=== PATIENT | male | born 1995 | race African-American/Black ===

== ENCOUNTER 2016-04-04 00:38 | Emergency (ER) | payer OTHER ==
[2016-04-04 00:53] VITALS: BP 132/75; PULSE 90; BMI 22.3
--- NOTE | 2016-04-04 01:45 | PDOC ---
History of Present Illness - General History Source: Patient Exam Limitations: No Limitations - History of Present Illness Initial Comments: CHIEF COMPLAINT: 21 y/o male c/o right ankle pain and swelling s/p slip and fall. HISTORY OF PRESENT ILLNESS: The patient fell down a few stairs and landed in an eversion fashion on his right ankle. He denies head trauma, LOC, and all other complaints. Vital signs on arrival are within normal limits. REVIEW OF SYSTEMS: GENERAL/CONSTITUTIONAL: No fever/chills. No weakness. No weight change. HEAD, EYES, EARS, NOSE AND THROAT: No change in vision. No ear pain or discharge. No sore throat. MUSCULOSKELETAL: +right ankle pain and swelling. No neck or back pain. SKIN: No rash or easy bruising. NEUROLOGIC: No headache, vertigo, loss of consciousness, or loss of sensation. PHYSICAL EXAM: VITAL_SIGNS: within normal limits GENERAL_APPEARANCE: alert, cooperative, mild obvious discomfort. MENTAL_STATUS: speech clear, oriented X 3, responds appropriately to questions. NEURO: motor intact and sensory intact in injured extremity. EXTREMITIES: good pulse in injured extremity; moderate edema to lateral malleolus of right ankle. TTP of lateral malleolus and anterior right ankle joint. Decreased dorsiflexion of affected foot secondary to pain. No erythema , warmth, streaking. No obvious deformities. SKIN: warm, dry, good color. <Isela Heath - Last Filed: 04/04/16 01:41> <Marianela Barber - Last Filed: 04/04/16 03:12> - General Chief Complaint: Injury Stated Complaint: RT ANKLE/FOOT INJURY Time Seen by Provider: 04/04/16 01:38 Past History - Past Medical History Other medical history: denies - Psycho/Social/Smoking Cessation Hx Suicidal Ideation: No Smoking History: Never smoked <Isela Heath - Last Filed: 04/04/16 01:41> <Marianela Barber - Last Filed: 04/04/16 03:12> - Past Medical History Allergies/Adverse Reactions: Allergies Allergy/AdvReac Type Severity Reaction Status Date / Time No Known Allergies Allergy Verified 04/04/16 00:41 Home Medications: Ambulatory Orders Albuterol Sulfate Inhaler - [Ventolin Hfa Inhaler -] 1 - 2 inh PO QID 04/04/16 Naproxen 250 mg PO BID #14 tablet 04/04/16 *Physical Exam - Vital Signs Last Vital Signs Temp Pulse Resp BP Pulse Ox 90 18 132/75 98 04/04/16 00:41 04/04/16 00:41 04/04/16 00:41 04/04/16 00:41 <Isela Heath - Last Filed: 04/04/16 01:41> - Vital Signs Last Vital Signs Temp Pulse Resp BP Pulse Ox 90 18 132/75 98 04/04/16 00:41 04/04/16 00:41 04/04/16 00:41 04/04/16 00:41 <Marianela Barber - Last Filed: 04/04/16 03:12> ED Treatment Course - RADIOLOGY Radiology Studies Ordered: Category Date Time Status ANKLE & FOOT-RIGHT* [RAD] Stat Radiology 04/04/16 00:43 Ordered <Isela Heath - Last Filed: 04/04/16 01:41> - Medications Given in the ED: ED Medications Discontinued Medications Generic Name Dose Route Start Last Admin Trade Name Freq PRN Reason Stop Dose Admin Naproxen 500 mg 04/04/16 03:02 04/04/16 03:04 Naprosyn - PO 04/04/16 03:03 500 mg ONCE ONE Administration <Marianela Barber - Last Filed: 04/04/16 03:12> Medical Decision Making - Medical Decision Making A/P: 21 y/o afebrile male with right ankle pain and swelling s/p slip and fall. Plan is as follows: 1. Xray right ankle I am signing this patient out to my colleague: RICARDO Barber In brief, this patient is being seen in the ED for a chief complaint of: right ankle pain I have completed the initial assessment interview note and have ordered: xray right ankle I have reviewed the following results: none Pending results are: xray Plan for disposition is as follows: pending <Isela Heath - Last Filed: 04/04/16 01:41> *DC/Admit/Observation/Transfer <Isela Heath - Last Filed: 04/04/16 01:41> - Discharge Dispostion Admit: No <Marianela Barber - Last Filed: 01/18/17 03:12> Diagnosis at time of Disposition: Ankle injury Qualifiers: Encounter type: initial encounter Laterality: right Qualified Code(s): S99.911A - Unspecified injury of right ankle, initial encounter - Discharge Dispostion Disposition: HOME Condition at time of disposition: Stable - Prescriptions Prescriptions: Naproxen 250 mg PO BID #14 tablet - Referrals Referrals: Bart Long MD [Staff Physician] - - Patient Instructions Printed Discharge Instructions: DI for Ankle Sprain Additional Instructions: Please take medication as prescribed and follow up with orthopedics tomorrow. If you experience inability to move your foot (as if it feels "frozen"), loss of sensation, numbness, "pins and needles" feeling, or develop any new or worsening symptoms, please return to the ER.
[2016-04-04] MEDS ORDERED: NAPROXEN 500 MG TABLET (FP) PO ONE (03:02)
[2016-04-04] MEDS ORDERED: NAPROXEN 500 MG TABLET (FP) ONE (03:03)
== END 2016-04-04 03:20 | disposition home or self-care (01) ==
LOC: JER 00:38
DX: S99.911A Unspecified injury of right ankle, initial encounter (principal); W10.9XXA Fall (on) (from) unspecified stairs and steps, initial encounter; Y93.9 Activity, unspecified; Y92.9 Unspecified place or not applicable
CPT/HCPCS: 73610-TC-RT; 73630-TC-RT; 99281-25